=== PATIENT | female | born 1995 | race Two or more races ===

== ENCOUNTER 2025-09-05 10:50 | Emergency (ER) | payer OTHER ==
[~2025-09-05] VITALS: Ht 167.6 cm; Wt 65.8 kg
[2025-09-05] MEDS ORDERED: ONDANSETRON HCL 2 MG/ML VIAL ONE (10:57)
[2025-09-05] MEDS ORDERED: FAMOTIDINE/PF 20 MG/2 ML VIAL ONE (10:58)
[2025-09-05] MEDS ORDERED: XELJANZ10 MG (11:01)
[2025-09-05] MEDS ORDERED: FAMOTIDINE/PF 20 MG/2 ML VIAL IV PUSH ONE (11:15)
[2025-09-05] MEDS ORDERED: ONDANSETRON HCL 2 MG/ML VIAL IV ONE (11:15)
[2025-09-05] MEDS ORDERED: 0.9 % SODIUM CHLORIDE 1,000 ML IV SCH (11:15)
[2025-09-05 11:44] LABS: BASO % 0.2 % (0.1-1.2); EOS # 0.02 (0.04-0.54); EOS % 0.5 % (0.7-7.0); LYMPH # 0.72 (1.18-3.74); LYMPH % 16.8 % (19.3-53.1); MEAN PLATELET VOLUME 10.00 fl (9.4-12.4); MONO # 0.41 (0.24-0.82); MONO % 9.6 % (4.7-12.5); NEUT # 3.11 (1.56-6.13); NEUT % 72.7 % (34.0-71.1); RED CELL DISTRIBUTION WIDTH 12.4 % (11.6-14.4)
[2025-09-05 12:16] LABS: ALT/SGPT 24.0 U/L (12-78); AST/SGOT 18.0 U/L (15-37); BILIRUBIN TOTAL 0.29 mg/dL (0.3-1.2); BUN CREA RATIO 16.0 (7.0-25.0); CREATININE SERUM 0.67 mg/dL (0.55-1.02); GFR 104.8; GLOBULINA 4.8 G/DL (2.4-3.5); GLUCOSE FASTING 107.0 mg/dL (65-100); OSMOLALITY SERUM 279.0 MOSM/KG (275-295)
[2025-09-05 13:15] LABS: URINE APPEARANCE Clear; URINE BILIRRUBIN Negative (NEGATIVE); URINE BLOOD Negative; URINE COLOR Dark Yellow; URINE GLUCOSE Negative (NEGATIVE); URINE KETONE Trace (NEGATIVE); URINE LEUKOCYTE Trace; URINE NITRATE Negative; URINE PROTEIN 30 (NEGATIVE); URINE UROBILINOGEN 1.0 E.U./dl
[2025-09-05 13:19] LABS: URINE BACTERIA 545.6 uL (0.0-1933); URINE EPITHELIAL CELLS 52.4 uL (0.0-38.8); URINE RBC 3.8 uL (0.0-20.8); URINE WBC 14.5 uL (0.0-23.2)
[2025-09-05 13:21] LABS: URINE CAST 1.27 uL (0.0-1.40)
[2025-09-05 13:27] LABS: URINE MUCUS HEAVY
[2025-09-05] MEDS ORDERED: PEPCID AC20 MG PO (15:35)
[2025-09-05] MEDS ORDERED: ACETAMINOPHEN500 M1 PO (15:35)
[2025-09-05] MEDS ORDERED: ZOFRAN8 MG PO (15:35)
== END 2025-09-05 16:32 | disposition home or self-care (01) ==
LOC: ER 10:50
PROVIDERS: Preventive Medicine Public Health & General Preventive Medicine
DX: A08.4 Viral intestinal infection, unspecified (principal); R11.10 Vomiting, unspecified; R10.13 Epigastric pain; R10.9 Unspecified abdominal pain